=== PATIENT | male | born 1955 | race Caucasian/White ===

== ENCOUNTER 2020-09-05 06:20 | Emergency (ER) | payer OTHER ==
[2020-09-05 06:37] LABS: Glucose,Whole Blood 124 mg/dL (75-99)
--- NOTE | 2020-09-05 06:41 | ED ---
CPR HPI - General Stated Complaint: Cardiac Arrest Time Seen by Provider: 09/05/20 06:20 Limitations: physical limitation (Patient unresponsive) - History of Present Illness Initial Comments: This patient is a 65-year-old man brought by ambulance after he collapsed and became unresponsive at home. History from EMS initially. They were called to the home for patient who had collapsed. On arrival, they found patient appeared to be having agonal respiration and heart activity. Patient lost vital signs while they were in the process of transferring to the stretcher. ACLS protocol was initiated, the patient was intubated, had IV started and given epinephrine. CPR continued. They report that the patient asystolic throughout their ACLS protocol. They had received report that the patient had not been feeling well for about almost a week, having cough. Tonight patient had sit up watching TV and then was complaining of being short of breath. MD Complaint: collapsed during activity -: minute(s) Place: home Bystander CPR Performed: No AED Applied by Bystander/Cad Draftsman: Yes Shock Advised: No Initial Findings in the Field: agonal ROSC in the Field: No Associated Injuries: No Associated Symptoms: shortness of breath Treatments Prior to Arrival: intubation, chest compressions, epinephrine mgs # Review of Systems ROS Statement: Those systems with pertinent positive or pertinent negative responses have been documented in the HPI. ROS Other: All systems not noted in ROS Statement are negative. Limitations: ROS unobtainable due to patients medical condition General Exam General appearance: other (Unresponsive) Head exam: Present: atraumatic, normocephalic Eye exam: Present: conjunctival injection. Absent: PERRL, EOMI Pupils: Present: mydriatic ENT exam: Present: other (There is an endotracheal tube fixed in place.) Neck exam: Present: normal inspection. Absent: tenderness Respiratory exam: Present: rhonchi (With bag ventilations), other (There is no spontaneous inspiratory effort). Absent: wheezes, rales Cardiovascular Exam: Present: other (There is no palpable PMI. No detectable pulses. No cardiac sounds). Absent: regular rate, normal rhythm, normal heart sounds GI/Abdominal exam: Absent: tenderness, mass, pulsatile mass Extremities exam: Present: other (No evidence of trauma). Absent: normal capillary refill Back exam: Present: normal inspection Neurological exam: Present: other (Patient is unresponsive. No cranial nerve or deep tendon reflexes. No neurologic signs of life). Absent: alert Skin exam: Present: dry, cyanosis Course Vital Signs 09/05/20 06:22 Respiratory 14 Rate O2 Sat by Pulse 85 L Oximetry Medical Decision Making - Medical Decision Making Patient is 65-year-old man who collapsed at home and on EMS arrival had agonal vitals. He did lose pulse and there were no further respiratory attempts. ACLS protocol was initiated with no response in the field. Patient asystolic here and did have 3 rounds of epinephrine as well as bicarb. Blood sugar here found to be 124. Patient remained asystolic and was pronounced here. I discussed with patient's who is present. Alessandro discussed with medical services assistant - Lab Data Lab Results 09/05/20 Range/Units 06:26 POC Glucose (mg/dL) 124 H (75-99) mg/dL POC Glu Relief Manager Penny Maddox Disposition Clinical Impression: Cardiac arrest Disposition: Referrals: None,Stated [Primary Care Provider] - 1-2 days Preliminary Cause of : Cardiopulmonary arrest
[2020-09-05 06:47] VITALS: RESP 14
== END 2020-09-05 09:38 | disposition expired ==
LOC: EC 06:20
DX: I46.9 Cardiac arrest, cause unspecified (principal)
CPT/HCPCS: 36415; 92950; 99285